=== PATIENT | male | born 1970 | race Hispanic/Latino ===

== ENCOUNTER 2021-01-28 11:57 | Inpatient (IN) | payer OTHER, SELFPAY ==
[~2021-01-28] VITALS: Ht 167.6 cm; Wt 109.4 kg
[2021-01-28] VITALS (7 sets, daily range): BP systolic 110–180; BP diastolic 54–96
[2021-01-28 12:14] LABS: BASOPHILS % (AUTO) 0.3 % (0.0-5.0); EOSINOPHILS % (AUTO) 5.8 % (0.0-8.0); LYMPHOCYTES % (AUTO) 18.4 % (21.0-51.0); MEAN CORPUSCULAR HEMOGLOBIN 32.7 pg (27.0-33.0); MEAN CORPUSCULAR HGB CONC 38.9 g/dL (32.0-36.0); MEAN CORPUSCULAR VOLUME 83.9 fL (79-99); MONOCYTES % (AUTO) 6.3 % (3.0-13.0); NEUTROPHILS % (AUTO) 66.4 % (40.0-77.0); PLATELET COUNT (AUTO) 198 K/uL (130-400); RED BLOOD CELL COUNT(AUTO) 5.45 MIL/uL (4.50-6.20); RED CELL DISTRIBUTION WIDTH 14.6 % (11.0-15.5); WHITE BLOOD COUNT (AUTO) 11.2 K/uL (4.8-10.8)
[2021-01-28] MEDS ORDERED: DICYCLOMINE 20MG (10MG/ML) AMP IM STA (12:32)
[2021-01-28] MEDS ORDERED: FAMOTIDINE 20MG TAB PO ONE (13:00)
[2021-01-28] MEDS ORDERED: LIDOCAINE HCL 2% VISCOUS 15 ML UDCUP PO ONE (13:00)
[2021-01-28] MEDS ORDERED: MAG/ALUM/SIMETH 30 ML UDCUP PO ONE (13:00)
[2021-01-28 13:01] LABS: APPEARANCE,URINE Clear (CLEAR); BILIRUBIN,URINE Negative (NEGATIVE); COLOR,URINE Yellow (YELLOW); GLUCOSE, URINE (UA) >=1000 mg/dL (NEGATIVE); KETONES,URINE Trace mg/dL (NEGATIVE); LEUKOCYTE ESTERASE ,URINE Negative (NEGATIVE); NITRATE,URINE Negative (NEGATIVE); OCCULT BLOOD,URINE Trace (NEGATIVE); PROTEIN,URINE 300 mg/dL (NEGATIVE); UROBILINOGEN,URINE 0.2 mg/dL (0.2-1.0)
[2021-01-28 13:01] LABS: POTASSIUM 5.7 mmol/L (3.5-5.1)
[2021-01-28 13:02] LABS: BILIRUBIN,TOTAL 6.9 mg/dL (0.2-1.0)
[2021-01-28 13:11] LABS: TOTAL PROTEIN, SERUM 8.5 g/dL (6.0-8.3)
[2021-01-28 13:20] LABS: BACTERIA,URINE None Seen /HPF (None Seen); RBC,URINE 0-1 /HPF (0-1); SQUAMOUS EPITHELIAL CELL,UR 0-2 /HPF (0-2); WBC,URINE 0-1 /HPF (0-1)
[2021-01-28 13:21] LABS: COARSE GRANULAR CASTS,URINE 0-2 /LPF (None Seen)
[2021-01-28 13:25] LABS: HEMATOCRIT 37.8 % (42-54)
[2021-01-28] MEDS ORDERED: 0.9%NACL 1000ML 1,000 ML IV SCH ×2 (13:30→15:00)
[2021-01-28 13:44] LABS: ALBUMIN 3.4 g/dL (3.5-5.0)
[2021-01-28] MEDS ORDERED: MORPHINE 4 MG SYG IM PRN (14:00)
[2021-01-28] MEDS ORDERED: ONDANSETRON 4MG INJ IVP ONE (14:00)
[2021-01-28] MEDS ORDERED: ONDANSETRON 4MG INJ ONE (14:01)
[2021-01-28] MEDS ORDERED: MORPHINE 4 MG SYG ONE (14:02)
[2021-01-28] MEDS ORDERED: LISI40TA9 PO (14:40)
[2021-01-28] MEDS ORDERED: METF-444 PO (14:40)
[2021-01-28] MEDS ORDERED: GUAIFENESIN-DM 200/20 MG 10 ML PO PRN (15:00)
[2021-01-28] MEDS ORDERED: MORPHINE 4 MG SYG IV PRN (15:00)
[2021-01-28] MEDS ORDERED: MORPHINE 2 MG SYG IV PRN (15:00)
[2021-01-28] MEDS ORDERED: DEXTROSE 50%-WATER 50 ML DISP.SYRIN IV PRN (15:00)
[2021-01-28] MEDS ORDERED: GLUCAGON 1MG KIT 1 MG ML IM PRN (15:00)
[2021-01-28] MEDS ORDERED: ACETAMINOPHEN 325 MG TAB PO PRN (15:00)
[2021-01-28] MEDS ORDERED: LACTULOSE 20 GM/30 ML UDCUP PO PRN (15:00)
[2021-01-28] MEDS ORDERED: DIPHENHYDRAMINE HCL 25 MG CAPSULE PO PRN (15:00)
[2021-01-28 15:54] LABS: CHOLESTEROL 332 mg/dL (<200); HDL CHOLESTEROL 25 mg/dL (29-71); LDL DIRECT 50 mg/dL (0-99)
[2021-01-28 16:14] LABS: TRIGLYCERIDES 3272 mg/dL (30-200)
[2021-01-28] MEDS: LEVOFLOXACIN 500 MG/D5W 100 ML 100 ML IV SCH (16:18)
[2021-01-28] MEDS ORDERED: KETOROLAC 15MG/ML VIAL (15MG/ML) IV PRN (16:30)
[2021-01-28] MEDS ORDERED: INSULIN HUMULIN R 100 UNIT/ML 3ML SQ SCH (16:30)
[2021-01-28] MEDS ORDERED: PHARMACY COMMUNICATION MISC SCH (16:30)
[2021-01-28] MEDS ORDERED: INSULIN REGULAR, HUMAN 3ML 100 UNIT in 0.9%NACL 100ML 100 ML SQ SCH ×2 (17:00)
[2021-01-28 17:39] LABS: AMPHET/METH SCREEN,URINE NEGATIVE (NEGATIVE); BARBITURATE SCREEN, URINE NEGATIVE (NEGATIVE); BENZODIAZEPINES SCREEN,URINE NEGATIVE (NEGATIVE); CANNABINOID SCREEN,URINE NEGATIVE (NEGATIVE); COCAINE SCREEN,URINE NEGATIVE (NEGATIVE); OPIATE SCREEN,URINE NEGATIVE (NEGATIVE); PHENCYCLIDINE SCREEN,URINE NEGATIVE (NEGATIVE)
[2021-01-28] MEDS: HYDROMORPHONE 1 MG INJ IVP PRN (17:47)
[2021-01-28 18:03] LABS: MAGNESIUM 1.8 mg/dL (1.80-2.40); POTASSIUM 5.9 mmol/L (3.5-5.1)
[2021-01-28] MEDS: DEXTROSE 5 % AND 0.9 % NACL 1,000 ML IV SCH ×2 (18:17→23:50)
[2021-01-28 18:46] LABS: ALBUMIN 3.4 g/dL (3.5-5.0); BILIRUBIN,TOTAL 0.7 mg/dL (0.2-1.0); CREATININE 1.2 mg/dL (0.5-1.5); TOTAL PROTEIN, SERUM 8.4 g/dL (6.0-8.3)
[2021-01-28] MEDS ORDERED: KAYEXALATE 15GM/60ML PO ONE (19:00)
[2021-01-28] MEDS ORDERED: CALCIUM GLUC 1GM VIAL IV SCH (19:00)
[2021-01-28] MEDS: METRONIDAZOLE 500MG/100ML BAG 100 ML IVPB SCH (22:07)
[2021-01-28] MEDS: FAMOTIDINE 20MG VIAL IV SCH (22:07)
[2021-01-28 23:56] LABS: POTASSIUM 6.2 mmol/L (3.5-5.1)
[2021-01-29] VITALS (21 sets, daily range): BP systolic 96–132; BP diastolic 50–80
[2021-01-29 00:33] LABS: CREATININE 0.7 mg/dL (0.5-1.5)
[2021-01-29 01:32] LABS: BILIRUBIN,TOTAL 1.7 mg/dL (0.2-1.0)
[2021-01-29 01:51] LABS: ALBUMIN 2.5 g/dL (3.5-5.0)
[2021-01-29 02:09] LABS: BILIRUBIN,DIRECT < 0.1 mg/dL (0.0-0.3)
[2021-01-29 02:22] LABS: TOTAL PROTEIN, SERUM 7.2 g/dL (6.0-8.3)
[2021-01-29 02:23] LABS: ALANINE AMINOTRANSFERASE 35 U/L (12-78); ASPARTATE AMINOTRANSFERASE 119 U/L (10-37)
[2021-01-29 02:51] LABS: ABG BASE EXCESS -1.4 mmol/L (-2.0-3.0); ABG HCO3 22.5 mmol/L (21.0-28.0); ABG OXYGEN SATURATION 98.3 % (95.0-99.0); ABG PCO2 36 mmHg (35-48)
[2021-01-29] MEDS ORDERED: KAYEXALATE 15GM/60ML ONE (04:57)
[2021-01-29] MEDS: ONDANSETRON 4MG INJ IV PRN ×2 (05:06→10:21)
[2021-01-29] MEDS: DEXTROSE 5 % AND 0.9 % NACL 1,000 ML IV SCH ×4 (05:52→21:56)
[2021-01-29] MEDS ORDERED: KAYEXALATE 15GM/60ML PO SCH (06:00)
[2021-01-29] MEDS: METRONIDAZOLE 500MG/100ML BAG 100 ML IVPB SCH ×3 (06:09→22:30)
[2021-01-29 06:10] LABS: BASOPHILS % (AUTO) 0.4 % (0.0-5.0); EOSINOPHILS % (AUTO) 0.7 % (0.0-8.0); HEMATOCRIT 47.5 % (42-54); MEAN CORPUSCULAR HEMOGLOBIN 29.6 pg (27.0-33.0); MEAN CORPUSCULAR HGB CONC 34.7 g/dL (32.0-36.0); MEAN CORPUSCULAR VOLUME 85.1 fL (79-99); MONOCYTES % (AUTO) 8.3 % (3.0-13.0); NEUTROPHILS % (AUTO) 81.3 % (40.0-77.0); PLATELET COUNT (AUTO) 216 K/uL (130-400); RED BLOOD CELL COUNT(AUTO) 5.58 MIL/uL (4.50-6.20); RED CELL DISTRIBUTION WIDTH 14.8 % (11.0-15.5); WHITE BLOOD COUNT (AUTO) 13.5 K/uL (4.8-10.8)
[2021-01-29 07:00] LABS: BILIRUBIN,TOTAL 1.1 mg/dL (0.2-1.0); MAGNESIUM 1.8 mg/dL (1.80-2.40); POTASSIUM 5.2 mmol/L (3.5-5.1)
[2021-01-29 07:01] LABS: ALBUMIN 2.8 g/dL (3.5-5.0)
[2021-01-29] MEDS ORDERED: ENOXAPARIN SODIUM 40 MG/0.4 ML SYRINGE SQ ONE (07:24)
[2021-01-29 07:27] LABS: CREATININE 1.6 mg/dL (0.5-1.5); TOTAL PROTEIN, SERUM 7.5 g/dL (6.0-8.3)
[2021-01-29] MEDS: ENOXAPARIN SODIUM 40 MG/0.4 ML SYRINGE SQ SCH (08:29)
[2021-01-29] MEDS: FAMOTIDINE 20MG VIAL IV SCH ×2 (08:29→21:54)
[2021-01-29] MEDS ORDERED: HYDROMORPHONE 0.5 MG SYG (0.5MG/0.5ML) IVP PRN (09:30)
[2021-01-29] MEDS ORDERED: HYDROMORPHONE 1 MG INJ IVP PRN (09:30)
[2021-01-29] MEDS ORDERED: KAYEXALATE 15GM/60ML PO ONE (10:00)
[2021-01-29] MEDS: FOLIC ACID 5 MG/ML VIAL IV SCH (10:21)
[2021-01-29] MEDS: HYDROMORPHONE 1 MG INJ IVP PRN ×3 (10:21→21:54)
[2021-01-29] MEDS: THIAMINE HCL 100 MG/ML 2ML VIAL IVP SCH (10:21)
[2021-01-29] MEDS ORDERED: MAGNESIUM 2GM PREMIX 50ML 50 ML IV SCH (10:30)
[2021-01-29] MEDS ORDERED: 0.9% NACL 500ML IV.SOLN 500 ML IV SCH (10:30)
[2021-01-29] MEDS: LEVOFLOXACIN 500 MG/D5W 100 ML 100 ML IV SCH (16:32)
[2021-01-29 18:56] LABS: HEMATOCRIT 46.1 % (42-54)
[2021-01-29 19:04] LABS: CREATININE 1.2 mg/dL (0.5-1.5); POTASSIUM 3.8 mmol/L (3.5-5.1)
[2021-01-30] VITALS (14 sets, daily range): BP systolic 102–151; BP diastolic 44–78
[2021-01-30] MEDS: ONDANSETRON 4MG INJ IV PRN (00:33)
[2021-01-30] MEDS: DEXTROSE 5 % AND 0.9 % NACL 1,000 ML IV SCH ×5 (02:35→22:19)
[2021-01-30] MEDS: HYDROMORPHONE 1 MG INJ IVP PRN ×3 (03:25→13:09)
[2021-01-30] MEDS ORDERED: INSULIN HUMULIN R 100 UNIT/ML 3ML ONE (03:34)
[2021-01-30] MEDS: METRONIDAZOLE 500MG/100ML BAG 100 ML IVPB SCH ×3 (07:32→22:18)
[2021-01-30 08:53] LABS: BASOPHILS % (AUTO) 0.6 % (0.0-5.0); EOSINOPHILS % (AUTO) 0.3 % (0.0-8.0); HEMATOCRIT 43.2 % (42-54); MEAN CORPUSCULAR HEMOGLOBIN 28.1 pg (27.0-33.0); MEAN CORPUSCULAR HGB CONC 33.3 g/dL (32.0-36.0); MEAN CORPUSCULAR VOLUME 84.4 fL (79-99); MONOCYTES % (AUTO) 6.2 % (3.0-13.0); NEUTROPHILS % (AUTO) 84.5 % (40.0-77.0); PLATELET COUNT (AUTO) 172 K/uL (130-400); RED BLOOD CELL COUNT(AUTO) 5.12 MIL/uL (4.50-6.20); RED CELL DISTRIBUTION WIDTH 15.5 % (11.0-15.5); WHITE BLOOD COUNT (AUTO) 11.8 K/uL (4.8-10.8)
[2021-01-30 09:15] LABS: ALBUMIN 2.4 g/dL (3.5-5.0); BILIRUBIN,TOTAL 0.7 mg/dL (0.2-1.0); CREATININE 1.3 mg/dL (0.5-1.5); POTASSIUM 3.7 mmol/L (3.5-5.1); TOTAL PROTEIN, SERUM 6.5 g/dL (6.0-8.3)
[2021-01-30 09:30] LABS: CRP QUANTITATIVE 302.8 mg/L (0.00-9.0)
[2021-01-30] MEDS: FAMOTIDINE 20MG VIAL IV SCH ×3 (09:43→21:29)
[2021-01-30] MEDS: THIAMINE HCL 100 MG/ML 2ML VIAL IVP SCH (09:43)
[2021-01-30] MEDS: ENOXAPARIN SODIUM 40 MG/0.4 ML SYRINGE SQ SCH (09:46)
[2021-01-30] MEDS: FOLIC ACID 5 MG/ML VIAL IV SCH (09:50)
[2021-01-30] MEDS: FENOFIBRATE NANOCRYSTALLIZED 145 MG TAB PO SCH (11:15)
[2021-01-30] MEDS: FISH OIL 1000 MG/CAP PO SCH ×2 (14:06→21:29)
[2021-01-30] MEDS: LEVOFLOXACIN 500 MG/D5W 100 ML 100 ML IV SCH (17:07)
[2021-01-30 20:52] LABS: HEMATOCRIT 40.9 % (42-54)
[2021-01-30] MEDS: ATORVASTATIN 40 MG TABLET PO SCH (21:29)
[2021-01-31] VITALS (14 sets, daily range): BP systolic 128–160; BP diastolic 64–88
[2021-01-31] MEDS: HYDROMORPHONE 1 MG INJ IVP PRN ×3 (00:48→21:16)
[2021-01-31] MEDS: DEXTROSE 5 % AND 0.9 % NACL 1,000 ML IV SCH ×4 (03:32→17:35)
[2021-01-31 06:06] LABS: BASOPHILS % (AUTO) 0.7 % (0.0-5.0); EOSINOPHILS % (AUTO) 4.6 % (0.0-8.0); HEMATOCRIT 40.1 % (42-54); LYMPHOCYTES % (AUTO) 9.5 % (21.0-51.0); MEAN CORPUSCULAR HEMOGLOBIN 27.5 pg (27.0-33.0); MEAN CORPUSCULAR HGB CONC 31.7 g/dL (32.0-36.0); MEAN CORPUSCULAR VOLUME 86.8 fL (79-99); MONOCYTES % (AUTO) 8.2 % (3.0-13.0); NEUTROPHILS % (AUTO) 75.1 % (40.0-77.0); PLATELET COUNT (AUTO) 164 K/uL (130-400); RED BLOOD CELL COUNT(AUTO) 4.62 MIL/uL (4.50-6.20); RED CELL DISTRIBUTION WIDTH 15.6 % (11.0-15.5); WHITE BLOOD COUNT (AUTO) 10.9 K/uL (4.8-10.8)
[2021-01-31] MEDS: METRONIDAZOLE 500MG/100ML BAG 100 ML IVPB SCH ×3 (06:13→22:28)
[2021-01-31 06:31] LABS: ALBUMIN 2.4 g/dL (3.5-5.0); BILIRUBIN,TOTAL 0.7 mg/dL (0.2-1.0); CREATININE 1.1 mg/dL (0.5-1.5); POTASSIUM 3.5 mmol/L (3.5-5.1); TOTAL PROTEIN, SERUM 5.9 g/dL (6.0-8.3)
[2021-01-31] MEDS: ENOXAPARIN SODIUM 40 MG/0.4 ML SYRINGE SQ SCH (09:00)
[2021-01-31] MEDS: FOLIC ACID 5 MG/ML VIAL IV SCH (09:00)
[2021-01-31] MEDS: FISH OIL 1000 MG/CAP PO SCH ×3 (09:00→21:15)
[2021-01-31] MEDS: FAMOTIDINE 20MG VIAL IV SCH ×4 (09:00→21:15)
[2021-01-31] MEDS: FENOFIBRATE NANOCRYSTALLIZED 145 MG TAB PO SCH (09:00)
[2021-01-31] MEDS: THIAMINE HCL 100 MG/ML 2ML VIAL IVP SCH (09:00)
[2021-01-31] MEDS: LEVOFLOXACIN 500 MG/D5W 100 ML 100 ML IV SCH (15:30)
[2021-01-31] MEDS: INSULIN HUMULIN R 100 UNIT/ML 3ML SQ SCH ×2 (16:30→21:15)
[2021-01-31 16:40] LABS: HEMATOCRIT 37.7 % (42-54)
[2021-01-31] MEDS ORDERED: KCL 20 MEQ ERTAB PO ONE (16:47)
[2021-01-31] MEDS: ATORVASTATIN 40 MG TABLET PO SCH (21:15)
[2021-02-01] VITALS (9 sets, daily range): BP systolic 100–153; BP diastolic 65–88
[2021-02-01] MEDS: DEXTROSE 5 % AND 0.9 % NACL 1,000 ML IV SCH ×2 (04:33→04:46)
[2021-02-01] MEDS: HYDROMORPHONE 1 MG INJ IVP PRN ×2 (04:34→22:37)
[2021-02-01 07:25] LABS: EOSINOPHILS % (AUTO) 6.4 % (0.0-8.0); HEMATOCRIT 39.3 % (42-54); LYMPHOCYTES % (AUTO) 11.5 % (21.0-51.0); MEAN CORPUSCULAR HEMOGLOBIN 27.4 pg (27.0-33.0); MEAN CORPUSCULAR HGB CONC 32.1 g/dL (32.0-36.0); MEAN CORPUSCULAR VOLUME 85.4 fL (79-99); MONOCYTES % (AUTO) 9.6 % (3.0-13.0); NEUTROPHILS % (AUTO) 67.5 % (40.0-77.0); PLATELET COUNT (AUTO) 201 K/uL (130-400); RED CELL DISTRIBUTION WIDTH 15.2 % (11.0-15.5); WHITE BLOOD COUNT (AUTO) 12.2 K/uL (4.8-10.8)
[2021-02-01] MEDS: INSULIN HUMULIN R 100 UNIT/ML 3ML SQ SCH ×4 (07:42→21:00)
[2021-02-01 07:43] LABS: ALBUMIN 2.4 g/dL (3.5-5.0); BILIRUBIN,TOTAL 0.6 mg/dL (0.2-1.0); CREATININE 0.9 mg/dL (0.5-1.5); POTASSIUM 3.5 mmol/L (3.5-5.1); TOTAL PROTEIN, SERUM 6.7 g/dL (6.0-8.3)
[2021-02-01] MEDS: METRONIDAZOLE 500MG/100ML BAG 100 ML IVPB SCH ×3 (07:55→22:37)
[2021-02-01] MEDS: FAMOTIDINE 20MG VIAL IV SCH ×2 (07:58→09:03)
[2021-02-01] MEDS: FISH OIL 1000 MG/CAP PO SCH ×3 (09:03→22:37)
[2021-02-01] MEDS: FENOFIBRATE NANOCRYSTALLIZED 145 MG TAB PO SCH (09:03)
[2021-02-01] MEDS: FOLIC ACID 5 MG/ML VIAL IV SCH (09:03)
[2021-02-01] MEDS: THIAMINE HCL 100 MG/ML 2ML VIAL IVP SCH (09:03)
[2021-02-01] MEDS: ENOXAPARIN SODIUM 40 MG/0.4 ML SYRINGE SQ SCH (09:09)
[2021-02-01 09:31] LABS: INR 1.08 (0.85-1.15); PROTHROMBIN TIME 11.7 SEC (9.6-11.6)
[2021-02-01] MEDS: FAMOTIDINE 20MG TAB PO SCH ×2 (10:36→22:37)
[2021-02-01] MEDS: LEVOFLOXACIN 500 MG/D5W 100 ML 100 ML IV SCH (16:20)
[2021-02-01] MEDS: ATORVASTATIN 40 MG TABLET PO SCH (22:37)
[2021-02-02 00:20] VITALS: BP 157/79
[2021-02-02 04:21] VITALS: BP 149/79
[2021-02-02 04:34] LABS: HEMATOCRIT 39.2 % (42-54); MEAN CORPUSCULAR HEMOGLOBIN 28.2 pg (27.0-33.0); MEAN CORPUSCULAR HGB CONC 32.9 g/dL (32.0-36.0); MEAN CORPUSCULAR VOLUME 85.6 fL (79-99); RED BLOOD CELL COUNT(AUTO) 4.58 MIL/uL (4.50-6.20); WHITE BLOOD COUNT (AUTO) 13.9 K/uL (4.8-10.8)
[2021-02-02 04:54] LABS: CREATININE 1.1 mg/dL (0.5-1.5); POTASSIUM 3.5 mmol/L (3.5-5.1)
[2021-02-02] MEDS: METRONIDAZOLE 500MG/100ML BAG 100 ML IVPB SCH (05:34)
[2021-02-02] MEDS: INSULIN HUMULIN R 100 UNIT/ML 3ML SQ SCH ×2 (06:48→11:30)
[2021-02-02 07:30] VITALS: BP 137/78
[2021-02-02] MEDS ORDERED: INSULIN GLARGINE 100 UNITS/ML 10 ML VIAL SQ SCH (08:00)
[2021-02-02] MEDS: FENOFIBRATE NANOCRYSTALLIZED 145 MG TAB PO SCH (08:35)
[2021-02-02] MEDS: FISH OIL 1000 MG/CAP PO SCH (08:35)
[2021-02-02] MEDS: THIAMINE HCL 100 MG/ML 2ML VIAL IVP SCH (08:36)
[2021-02-02] MEDS: ENOXAPARIN SODIUM 40 MG/0.4 ML SYRINGE SQ SCH (08:36)
[2021-02-02] MEDS: FAMOTIDINE 20MG TAB PO SCH (08:36)
[2021-02-02] MEDS: FOLIC ACID 5 MG/ML VIAL IV SCH (09:00)
[2021-02-02 11:00] VITALS: BP 139/80
[2021-02-02] MEDS ORDERED: FENO145T PO (11:52)
[2021-02-02] MEDS ORDERED: ATOR40TA69 PO (11:52)
== END 2021-02-02 14:00 | disposition home or self-care (01) | DRG 439 ==
LOC: EDH 11:57 → EDHIP 11:58 → 3CH 02-01 23:14 → 3BH 02-01 23:29
PROVIDERS: ADMIT Hospitalist; ATTEND Hospitalist
DX: K85.90 Acute pancreatitis without necrosis or infection, unspecified (principal); K80.10 Calculus of gallbladder with chronic cholecystitis without obstruction; E87.1 Hypo-osmolality and hyponatremia; E87.5 Hyperkalemia; E11.65 Type 2 diabetes mellitus with hyperglycemia; E66.9 Obesity, unspecified; Z20.822 Contact with and (suspected) exposure to COVID-19; I10 Essential (primary) hypertension; E86.0 Dehydration; E78.1 Pure hyperglyceridemia; E78.5 Hyperlipidemia, unspecified; E87.8 Other disorders of electrolyte and fluid balance, not elsewhere classified; E86.1 Hypovolemia; Z68.37 Body mass index [BMI] 37.0-37.9, adult; Z88.0 Allergy status to penicillin; Z79.4 Long term (current) use of insulin
CPT/HCPCS: 36415; 36600; 71045; 74176; 74181; 76705; 80048; 80053; 80061; 80076; 80305; 81001; 82150; 82435; 82550; 82803; 82947; 82948; 83036; 83605; 83690; 83735; 83874; 84100; 84132; 84145; 84295; 84484; 85014; 85018; 85025; 85027; 85610; 85651; 86140; 87040; 87635; 93005; G0378; J0500; J0610; J1170; J1650; J1815; J1885; J1956; J2270; J2405; J3411; J3475; J3490; J7042

== ENCOUNTER 2022-12-21 18:09 | Emergency (ER) | payer OTHER, SELFPAY ==
[~2022-12-21] VITALS: Ht 167.6 cm; Wt 106.6 kg
[~2022-12-21 18:09] MED LIST: ATOR40TA69 PO; FENO145T PO; LISI40TA9 PO; METF-444 PO
[2022-12-21] MEDS ORDERED: CYCL-309 PO (20:44)
[2022-12-21] MEDS ORDERED: IBUP-1493 PO (20:44)
[2022-12-21] MEDS ORDERED: IBUPROFEN 800 MG TAB PO ONE (21:00)
[2022-12-21 21:32] VITALS: BP 126/60; PULSE 74; RESP 16; O2SAT 98
== END 2022-12-21 21:42 | disposition home or self-care (01) ==
LOC: EDH 18:09
DX: M25.512 Pain in left shoulder (principal); I10 Essential (primary) hypertension; E78.00 Pure hypercholesterolemia, unspecified; E11.9 Type 2 diabetes mellitus without complications; Z88.0 Allergy status to penicillin; Z79.84 Long term (current) use of oral hypoglycemic drugs; Z79.899 Other long term (current) drug therapy
CPT/HCPCS: 73030